=== PATIENT | male | born 1950 | race Caucasian/White ===

== ENCOUNTER 2023-06-17 10:58 | Outpatient (CLI) | payer MEDICARE, BC | END 2023-06-17 10:59 | disposition home or self-care (01) | LOC: CSHCP 10:58 | PROVIDERS: ATTEND Internal Medicine | DX: R05.9 Cough, unspecified (principal); J98.4 Other disorders of lung | CPT/HCPCS: 94060; 94726; 94729; 94760 ==

== ENCOUNTER 2025-06-02 09:20 | Emergency (ER) | payer MEDICARE, BC ==
[2025-06-02] MEDS ORDERED: Acetaminophen 500 MG TAB ONE (10:37)
== END 2025-06-02 11:14 ==
LOC: CSHERS 09:20
DX: J06.9 Acute upper respiratory infection, unspecified (principal); I10 Essential (primary) hypertension; F17.220 Nicotine dependence, chewing tobacco, uncomplicated
CPT/HCPCS: 87428; 99283